=== PATIENT | male | born 1955 | race Caucasian/White ===

== ENCOUNTER 2023-01-05 15:09 | Inpatient (IN) | payer MEDICARE, OTHER ==
[~2023-01-05] VITALS: Ht 172.7 cm; Wt 60.8 kg
[2023-01-05] MEDS ORDERED: OLANZAPINE 10 MG VIAL IM ONE (15:45)
[2023-01-05 15:53] LABS: HEMATOCRIT 43.9 % (36.7-47.1); MEAN CORPUSCULAR HEMOGLOBIN 28.9 uug (23.8-33.4); MEAN CORPUSCULAR VOLUME 89.4 fL (73.0-96.2); PLATELET COUNT (AUTO) 326 K/uL (152-348)
[2023-01-05 16:18] LABS: CARBON DIOXIDE 32 mmol/L (21-32); CHLORIDE 103 mmol/L (98-107); GLUCOSE 114 mg/dL (74-106); POTASSIUM 3.7 mmol/L (3.5-5.1); UREA NITROGEN, BLOOD 11 mg/dL (7-18)
[2023-01-05 16:25] LABS: ALANINE AMINOTRANSFERASE 31 U/L (16-63); ALKALINE PHOSPHATASE 96 U/L (50-136); ASPARTATE AMINOTRANSFERASE 20 U/L (15-37); BILIRUBIN,DIRECT 0.1 mg/dL (0.0-0.2); BILIRUBIN,TOTAL 0.2 mg/dL (0.2-1.0); TOTAL PROTEIN, SERUM 8.4 g/dL (6.4-8.2)
[2023-01-05 16:27] LABS: ETHANOL < 3 MG/DL (0-0)
[2023-01-05 16:28] LABS: ACETAMINOPHEN < 2.0 ug/mL (10-30)
[2023-01-05 16:49] LABS: *BILIRUBIN,URIN NEGATIVE (NEGATIVE); *CLARITY,URINE CLEAR (CLEAR); *COLOR,URINE YELLOW (YELLOW); *KETONES,URINE 1+ (NEGATIVE); *UROBILINOGEN,URINE 0.2 E.U./dl (NORMAL); LEUKOCYTE ESTERASE ,URINE NEGATIVE (NEGATIVE); NITRITE, URINE NEGATIVE (NEGATIVE); UGLUCOSE NEGATIVE (NEGATIVE)
[2023-01-05 16:58] LABS: *AMPHETAMINE, URINE NEGATIVE (NEGATIVE); *CANNABINOID, URINE POSITIVE (NEGATIVE); *COCCAINE, URINE POSITIVE (NEGATIVE); *PHENCYCLIDINE SCREEN,URINE NEGATIVE (NEGATIVE)
[2023-01-05 17:07] LABS: *BLOOD, URINE TRACE (NEGATIVE)
[2023-01-05 18:08] VITALS: BP 159/96
[2023-01-05] MEDS ORDERED: MAGNESIUM HYDROXIDE 30 ML LIQUID UDC PO PRN (18:15)
[2023-01-05] MEDS ORDERED: LORAZEPAM 1 MG TABLET PO PRN (18:15)
[2023-01-05] MEDS ORDERED: MAG HYDROX/AL HYDROX/SIMETH 30 ML LIQUID UDC PO PRN (18:15)
[2023-01-05] MEDS ORDERED: ACETAMINOPHEN 325 MG TABLET PO PRN (18:15)
[2023-01-05] MEDS ORDERED: ZOLPIDEM 5 MG TABLET PO PRN (18:15)
[2023-01-05 18:34] LABS: WBC,URINE 0-3 /HPF (0-3)
[2023-01-05] MEDS ORDERED: OLANZAPINE 10 MG VIAL IM STA (19:43)
[2023-01-05 20:03] VITALS: BP 159/96
[2023-01-06 07:30] VITALS: BP 155/82
[2023-01-06 08:20] LABS: BILIRUBIN,TOTAL 0.4 mg/dL (0.2-1.0); POTASSIUM 4.3 mmol/L (3.5-5.1); TOTAL PROTEIN, SERUM 7.4 g/dL (6.4-8.2)
[2023-01-06] MEDS: OLANZAPINE 2.5 MG TABLET PO SCH ×2 (13:12→17:17)
[2023-01-06 15:25] VITALS: BP 142/85
[2023-01-06] MEDS ORDERED: OLANZAPINE ZYDIS 5 MG TAB.RAPDIS PO PRN (18:00)
[2023-01-06 19:55] VITALS: BP 122/78
[2023-01-07 07:50] VITALS: BP 142/94
[2023-01-07] MEDS: OLANZAPINE 2.5 MG TABLET PO SCH ×3 (08:23→17:00)
[2023-01-07 16:03] VITALS: BP 104/62
[2023-01-07 19:45] VITALS: BP 147/86
[2023-01-08 08:09] VITALS: BP 133/81
[2023-01-08] MEDS: OLANZAPINE 2.5 MG TABLET PO SCH ×4 (09:00→17:00)
[2023-01-08 15:55] VITALS: BP 146/89
[2023-01-08 20:22] VITALS: BP 140/95
[2023-01-09 08:36] VITALS: BP 143/83
[2023-01-09] MEDS: OLANZAPINE 2.5 MG TABLET PO SCH ×3 (08:54→17:00)
[2023-01-09 16:00] VITALS: BP 139/72
[2023-01-09 20:04] VITALS: BP 130/86
[2023-01-10 08:09] VITALS: BP 150/90
[2023-01-10] MEDS: OLANZAPINE 2.5 MG TABLET PO SCH ×3 (09:00→16:32)
[2023-01-10 17:15] VITALS: BP 136/79
[2023-01-10 20:00] VITALS: BP 139/83
[2023-01-11 08:02] VITALS: BP 146/79
[2023-01-11] MEDS: OLANZAPINE 2.5 MG TABLET PO SCH ×3 (09:00→16:42)
[2023-01-11 16:10] VITALS: BP 140/85
[2023-01-11 19:45] VITALS: BP 146/71
[2023-01-12 07:48] VITALS: BP 138/99
[2023-01-12] MEDS: OLANZAPINE 2.5 MG TABLET PO SCH ×2 (08:50→12:00)
== END 2023-01-12 13:15 | disposition home or self-care (01) | DRG 885 ==
LOC: ER 15:09 → GPS 17:35
PROVIDERS: ADMIT Psychiatry & Neurology Psychosomatic Medicine; ATTEND Nurse Practitioner Acute Care
DX: F29 Unspecified psychosis not due to a substance or known physiological condition (principal); F14.10 Cocaine abuse, uncomplicated; F12.10 Cannabis abuse, uncomplicated; F60.9 Personality disorder, unspecified; F10.10 Alcohol abuse, uncomplicated; Z20.822 Contact with and (suspected) exposure to COVID-19; R41.89 Other symptoms and signs involving cognitive functions and awareness
CPT/HCPCS: 36415; 85025; A4663; G0480